=== PATIENT | female | born 1985 | race Caucasian/White ===

== ENCOUNTER 2022-07-29 18:57 | Emergency (ER) | payer OTHER ==
--- NOTE | 2022-07-29 20:19 | ED Physician Documentation ---
PD HPI URI - Stated complaint Stated Complaint: COUGH,SOA,PHLEM - Chief complaint Chief Complaint: General - History obtained from History obtained from: Patient - History of Present Illness Timing - onset: How many days ago (2) Timing duration: Days (2) Timing details: Abrupt onset, Still present Associated symptoms: Fever, Nasal congestion, Dry cough, Other (body ahces) Contributing factors: Sick contact. No: COPD / asthma Similar symptoms before: Has not had sx before Recently seen: Not recently seen Review of Systems Constitutional: reports: Fever, Myalgias, Fatigue Nose: reports: Congestion Cardiac: denies: Chest pain / pressure Respiratory: reports: Cough. denies: Wheezing GI: denies: Vomiting, Diarrhea PD PAST MEDICAL HISTORY - Past Medical History Cardiovascular: None Respiratory: None - Present Medications Home Medications: Ambulatory Orders Medication Instructions Recorded Confirmed Benzonatate [Tessalon] 100 mg PO TID PRN #20 cap 07/29/22 Propranolol HCl 20 mg PO DAILY PRN 07/29/22 07/29/22 Sertraline [Zoloft] 75 mg PO DAILY 07/29/22 07/29/22 buPROPion HCL [Bupropion HCl Sr] 100 mg PO DAILY 07/29/22 07/29/22 - Allergies Allergies/Adverse Reactions: Allergies Allergy/AdvReac Type Severity Reaction Status Date / Time codeine Allergy Unknown Verified 07/29/22 19:09 PD ED PE NORMAL - Vitals Vital signs reviewed: Yes - General General: Alert and oriented X 3, No acute distress, Well developed/nourished - HEENT HEENT: Pharynx benign - Neck Neck: Supple, no meningeal sign, No adenopathy - Cardiac Cardiac: No murmur. No: RRR (regular but tachycardic) - Respiratory Respiratory: Clear bilaterally - Abdomen Abdomen: Soft, Non tender - Derm Derm: Normal color, Warm and dry - Neuro Neuro: Alert and oriented X 3, No motor deficit, Normal speech Results - Vitals Vitals: Oxygen O2 Source Room air PD MEDICAL DECISION MAKING - ED course Complexity details: considered differential (Patient with positive COVID test at home and symptoms corresponding. History of anxiety. She is tachycardic here and she relates it more to her anxiety. She does not look ill enough to necessarily accommodate the tachycardia. I feel comfortable with discharging her.), d/w patient Departure - Departure Disposition: Home, Self Care Clinical Impression: COVID-19 Upper respiratory infection Qualifiers: URI type: unspecified URI Qualified Code(s): J06.9 - Acute upper respiratory infection, unspecified Condition: Stable Record reviewed to determine appropriate education?: Yes Instructions: ED Upper Resp Infec No Abx Tx Prescriptions: Benzonatate [Tessalon] 100 mg PO TID PRN #20 cap PRN Reason: Cough Comments: Stay well-hydrated. You can use your Tylenol sinus for fever and congestion. Might consider some ibuprofen or naproxen to help with aches and pains. Benzonatate if needed for cough suppression. [id number] cough medicines can help a bit too. Paxolvid antiviral combination medicine twice daily for 5 days per package instructions. I would anticipate symptoms over several days and typically improving over 4 to 5 days. Discharge Date/Time: 07/29/22 21:05
[2022-07-29] MEDS ORDERED: guaiFENesin/DEXTROMETHORPHAN 10 ML UDC PO STA (20:32)
[2022-07-29] MEDS ORDERED: NIRMATRELVIR/RITONAVIR PREPACK PO STA (20:32)
[2022-07-29] MEDS ORDERED: BENZONATATE 100 MG CAPSULE PO STA (20:32)
[2022-07-29] MEDS ORDERED: IBUPROFEN 600 MG TABLET PO STA (20:33)
[2022-07-29 21:02] VITALS: BP 150/67
== END 2022-07-29 21:05 | disposition home or self-care (01) ==
LOC: ED 18:57
DX: U07.1 COVID-19 (principal); J06.9 Acute upper respiratory infection, unspecified
CPT/HCPCS: 99282; A9270; J3490